=== PATIENT | male | born 1955 | race Two or more races ===

== ENCOUNTER 2023-11-02 11:15 | Inpatient (IN) | payer OTHER ==
[~2023-11-02] VITALS: Ht 177.8 cm; Wt 108.9 kg
[2023-11-02] MEDS ORDERED: SIMVASTATIN5 MG PO (13:41)
[2023-11-02] MEDS ORDERED: COZAAR100 MG PO (13:41)
[2023-11-09] MEDS ORDERED: LOSARTAN POTASS50 MG (10:51)
[2023-11-09] MEDS ORDERED: SIMVASTATIN20 MG (10:51)
[2023-11-09] MEDS ORDERED: BUPIVACAINE HCL 30 ML VIAL IJ ONE (11:45)
[2023-11-09] MEDS ORDERED: LIDOCAINE HCL 1%/EPINEPHRINE 20ML VIAL IJ ONE (11:45)
[2023-11-09] MEDS ORDERED: CEFTRIAXONE SODIUM 2,000 MG VIAL IV SCH (11:45)
[2023-11-09] MEDS ORDERED: METRONIDAZOLE/SODIUM CHLORIDE 500 MG/100 ML PIGGYBACK IV SCH (11:45)
[2023-11-09] MEDS ORDERED: 0.9 % SODIUM CHLORIDE 1,000 ML IV SCH (13:15)
[2023-11-09] MEDS ORDERED: DEXTROSE 50 % IN WATER 0.5 G/ML VIAL IV PRN (13:15)
[2023-11-09] MEDS ORDERED: MORPHINE SULFATE 4 MG/ML CARTRIDGE IV PRN (13:15)
[2023-11-09] MEDS ORDERED: ONDANSETRON HCL 2 MG/ML VIAL IV PRN (13:15)
[2023-11-09] MEDS ORDERED: OxyCODONE HCL 5 MG TABLET (ROXICODONE) PO PRN (13:15)
[2023-11-09] MEDS ORDERED: SUGAMMADEX SODIUM 200 MG/2 ML VIAL IV ONE (13:26)
[2023-11-09] MEDS ORDERED: ACETAMINOPHEN 500 MG GEL..CAP PO SCH (14:00)
[2023-11-09] MEDS ORDERED: ENALAPRILAT DIHYDRATE 1.25 MG/ML VIAL IV PRN (14:30)
[2023-11-09 14:55] LABS: HEMATOCRIT 41.1 % (39.0-48.0); HEMOGLOBIN 14.1 g/dL (13-16.00); MEAN CELL VOLUME 88.8 fL (80.0-100.00); MEAN CORPUSCULAR HEMOGLOBIN 30.4 pg (27.00-32.0); MEAN CORPUSCULAR HGB CONC 34.3 g/dl (32.0-36.0); PLATELET COUNT 226 K/uL (150-450); RED BLOOD COUNT 4.63 M/uL (4.00-6.00)
[2023-11-09 15:21] LABS: ALBUMIN 3.5 gm/dL (3.4-5.0); CREATININE SERUM 1.8 mg/dL (0.70-1.30); GFR 37.94; MAGNESIUM 1.9 mg/dL (1.8-2.4); PHOSPHOROUS 3.1 mg/dL (2.5-4.9); POTASSIUM 4.47 mEq/L (3.5-5.1)
[2023-11-09] MEDS ORDERED: GABAPENTIN 300 MG CAPSULE PO ONE (16:33)
[2023-11-09 16:42] LABS: ABG PH 7.385 (7.35-7.45); ABG PO2 89.9 mmHg (80-100); ABG pCO2 39.2 mmHg (35-45); BASE EXCESS -1.8 mmol/l; SaO2 96.7 %; Tco2 24.2 mmol/l
[2023-11-09] MEDS ORDERED: POLYETHYLENE GLYCOL 3350 17 GM BLIST.PACK PO SCH (17:00)
[2023-11-09] MEDS ORDERED: GABAPENTIN 300 MG CAPSULE PO SCH (17:00)
[2023-11-09] MEDS ORDERED: HYOSCYAMINE SULFATE 0.125 MG TAB.SUBL SL SCH (17:00)
[2023-11-09 17:20] LABS: allen test SATISFACTORY; o2 21 %; puncture site RADIAL LEFT
[2023-11-09] MEDS ORDERED: HYOSCYAMINE SULFATE 0.125 MG TAB.SUBL ONE (17:54)
[2023-11-09] MEDS ORDERED: hydrALAZINE HCL 20 MG VIAL IV PRN (18:00)
[2023-11-09] MEDS ORDERED: FAMOTIDINE/PF 20 MG/2 ML VIAL IV PUSH SCH (21:00)
[2023-11-10 07:00] LABS: HEMOGLOBIN 13.7 g/dL (13-16.00); MEAN CELL VOLUME 87.8 fL (80.0-100.00); MEAN CORPUSCULAR HEMOGLOBIN 30.9 pg (27.00-32.0); MEAN CORPUSCULAR HGB CONC 35.2 g/dl (32.0-36.0); PLATELET COUNT 191 K/uL (150-450); RED BLOOD COUNT 4.44 M/uL (4.00-6.00); RED CELL DISTRIBUTION WIDTH 13.1 % (11.5-14.5)
[2023-11-10 07:27] LABS: CALCIUM 8.1 mg/dL (8.5-10.1); CREATININE SERUM 1.09 mg/dL (0.70-1.30); GFR 67.68; MAGNESIUM 1.9 mg/dL (1.8-2.4); POTASSIUM 4.02 mEq/L (3.5-5.1)
[2023-11-10] MEDS ORDERED: KETOROLAC TROMETHAMINE 30 MG VIAL IV NR (08:15)
[2023-11-10] MEDS ORDERED: LOSARTAN POTASSIUM 50 MG TABLET PO SCH (09:00)
[2023-11-10] MEDS ORDERED: ENOXAPARIN SODIUM 40 MG/0.4 ML SYRINGE SUBCUTANEO SCH (17:00)
[2023-11-11] MEDS ORDERED: ENOXAPARIN SODIUM 40 MG/0.4 ML SYRINGE SUBCUTANEO SCH (09:00)
[2023-11-11 09:39] LABS: HEMATOCRIT 42.1 % (39.0-48.0); HEMOGLOBIN 14.6 g/dL (13-16.00); MEAN CELL VOLUME 88.8 fL (80.0-100.00); MEAN CORPUSCULAR HEMOGLOBIN 30.7 pg (27.00-32.0); MEAN CORPUSCULAR HGB CONC 34.6 g/dl (32.0-36.0); PLATELET COUNT 229 K/uL (150-450); RED BLOOD COUNT 4.74 M/uL (4.00-6.00)
[2023-11-11 10:11] LABS: CREATININE SERUM 1.12 mg/dL (0.70-1.30); GFR 65.59; MAGNESIUM 1.9 mg/dL (1.8-2.4); POTASSIUM 4.32 mEq/L (3.5-5.1)
[2023-11-11 10:27] LABS: PHOSPHOROUS 1.8 mg/dL (2.5-4.9)
[2023-11-11] MEDS ORDERED: POTASSIUM PHOS,M-BASIC-D-BASIC 18 MM in 0.9 % SODIUM CHLORIDE 250 ML IV NR (12:30)
[2023-11-11] MEDS ORDERED: HYOSCYAMINE0.125 M1 SL (12:52)
[2023-11-11] MEDS ORDERED: PEPCID AC20 MG PO (12:52)
[2023-11-11] MEDS ORDERED: TRAM1TAB98 PO (12:52)
[2023-11-11] MEDS ORDERED: INTESTINEX680 M1 PO (12:52)
== END 2023-11-12 07:42 | disposition home or self-care (01) | DRG 330 ==
LOC: SURH 11-09 08:45 → O/R 11-09 09:41 → SURH 11-09 11:15
PROVIDERS: Internal Medicine Geriatric Medicine; ADMIT Surgery; ATTEND Surgery
PROC: 0DBP4ZZ Excision of Rectum, Percutaneous Endoscopic Approach (ICD-10-PCS; 2023-11-09)
PROC: 07BC4ZZ Excision of Pelvis Lymphatic, Percutaneous Endoscopic Approach (ICD-10-PCS; 2023-11-09)
PROC: 0DJD8ZZ Inspection of Lower Intestinal Tract, Via Natural or Artificial Opening Endoscopic (ICD-10-PCS; 2023-11-09)
PROC: 4A12X4Z Monitoring of Cardiac Electrical Activity, External Approach (ICD-10-PCS; 2023-11-09)
PROC: 0DTN4ZZ Resection of Sigmoid Colon, Percutaneous Endoscopic Approach (ICD-10-PCS; principal; 2023-11-09 08:45)
DX: C18.7 Malignant neoplasm of sigmoid colon (principal); C77.9 Secondary and unspecified malignant neoplasm of lymph node, unspecified; R59.0 Localized enlarged lymph nodes; I10 Essential (primary) hypertension; G47.30 Sleep apnea, unspecified

== ENCOUNTER 2023-11-13 12:42 | Inpatient (IN) | payer OTHER ==
[~2023-11-13] VITALS: Ht 177.8 cm; Wt 108.9 kg
[~2023-11-13 12:42] MED LIST: COZAAR100 MG PO; HYOSCYAMINE0.125 M1 SL; INTESTINEX680 M1 PO; LOSARTAN POTASS50 MG; PEPCID AC20 MG PO; SIMVASTATIN20 MG; SIMVASTATIN5 MG PO; TRAM1TAB98 PO
--- NOTE | 2023-11-13 13:48 | NUR ---
PTE ALERTA Y ORIENTADO X3. EL MISMO REFIERE QUE EL JUEVES LO SOMETIERON A LAPARASCOPIA POR DR. PRESLEY Y LO DIERON DE CAITLIN EL SABADO. DESDE EL LETICIA DE JESSICA PACIENTE PRESENTA VOMITOS Y DIARREAS. EN EL LETICIA DE HOY VOMITOS X5 Y DIARREAS X4. SE REALIZA DXT 137 MG/DL.
[2023-11-13] MEDS ORDERED: RINGERS SOLUTION,LACTATED 1,000 ML IV SCH (14:00)
[2023-11-13] MEDS ORDERED: ONDANSETRON HCL 2 MG/ML VIAL IV SCH (14:06)
[2023-11-13 16:34] LABS: HEMATOCRIT 42.3 % (39.0-48.0); HEMOGLOBIN 14.9 g/dL (13-16.00); MEAN CELL VOLUME 87.9 fL (80.0-100.00); MEAN CORPUSCULAR HGB CONC 35.3 g/dl (32.0-36.0); PLATELET COUNT 249 K/uL (150-450); RED BLOOD COUNT 4.81 M/uL (4.00-6.00); RED CELL DISTRIBUTION WIDTH 12.7 % (11.5-14.5)
[2023-11-13] MEDS ORDERED: METRONIDAZOLE/SODIUM CHLORIDE 100 ML IV SCH (17:00)
[2023-11-13 17:06] LABS: ALBUMIN 3.1 gm/dL (3.4-5.0); BILIRUBIN TOTAL 0.6 mg/dL (0.3-1.2); CALCIUM 8.8 mg/dL (8.5-10.1); CREATININE SERUM 1.04 mg/dL (0.70-1.30); GFR 71.45; GLOBULINA 3.6 G/DL (2.4-3.5); POTASSIUM 3.68 mEq/L (3.5-5.1); TOTAL PROTEIN 6.7 gm/dL (6.4-8.2)
[2023-11-13] MEDS ORDERED: CIPROFLOXACIN IN 5 % DEXTROSE 200 ML IV SCH (21:00)
[2023-11-13] MEDS ORDERED: FAMOTIDINE/PF 20 MG in 0.9 % SODIUM CHLORIDE 8 ML IV PUSH SCH (21:00)
[2023-11-14 03:43] LABS: URINE EPITHELIAL CELLS 10.3 uL (0.0-38.8); URINE RBC 11.9 uL (0.0-20.8); URINE WBC 2.6 uL (0.0-23.2)
[2023-11-14 04:17] LABS: PH,URINE 6.5; URINE APPEARANCE SL CLOUDY; URINE BILIRRUBIN NEGATIVE (NEGATIVE); URINE BLOOD NEGATIVE; URINE COLOR Y; URINE GLUCOSE NEGATIVE (NEGATIVE)
[2023-11-14 04:18] LABS: URINE CRYSTALS MODERATE /HPF; URINE LEUKOCYTE NEGATIVE; URINE MUCUS SCANT; URINE NITRATE NEGATIVE; URINE PROTEIN 100 (NEGATIVE); URINE UROBILINOGEN 0.2 E.U./dl
[2023-11-14] MEDS ORDERED: ENALAPRILAT DIHYDRATE 1.25 MG/ML VIAL IV PRN (11:00)
[2023-11-14] MEDS ORDERED: ENOXAPARIN SODIUM 40 MG/0.4 ML SYRINGE SUBCUTANEO NR (13:30)
[2023-11-14] MEDS ORDERED: AA 4.25%/CAL/LYTES/DEXT 5% 1,000 ML PERIFERAL SCH (17:00)
[2023-11-14 17:38] LABS: CALCIUM 7.9 mg/dL (8.5-10.1); CHOL HDL RATIO 2.8 (0-5.0); CREATININE SERUM 0.9 mg/dL (0.70-1.30); GFR 84.43; POTASSIUM 3.6 mEq/L (3.5-5.1)
[2023-11-15] MEDS ORDERED: ENOXAPARIN SODIUM 40 MG/0.4 ML SYRINGE SUBCUTANEO SCH (09:00)
[2023-11-15] MEDS ORDERED: LOSARTAN POTASSIUM 50 MG TABLET PO SCH (09:00)
[2023-11-15 09:20] LABS: HEMATOCRIT 34.9 % (39.0-48.0); HEMOGLOBIN 12.3 g/dL (13-16.00); MEAN CORPUSCULAR HEMOGLOBIN 30.9 pg (27.00-32.0); MEAN CORPUSCULAR HGB CONC 35.1 g/dl (32.0-36.0); PLATELET COUNT 206 K/uL (150-450); RED BLOOD COUNT 3.97 M/uL (4.00-6.00); RED CELL DISTRIBUTION WIDTH 12.6 % (11.5-14.5)
[2023-11-15 10:20] LABS: ALBUMIN 2.4 gm/dL (3.4-5.0); CALCIUM 7.8 mg/dL (8.5-10.1); CREATININE SERUM 0.99 mg/dL (0.70-1.30); GFR 75.63; MAGNESIUM 1.7 mg/dL (1.8-2.4); PHOSPHOROUS 2.3 mg/dL (2.5-4.9); POTASSIUM 3.51 mEq/L (3.5-5.1)
[2023-11-15 13:47] LABS: PH,URINE 5.5 (5.0-8.0); URINE BILIRRUBIN Small (NEGATIVE); URINE BLOOD Moderate; URINE COLOR Dark Yellow; URINE GLUCOSE Negative (NEGATIVE); URINE LEUKOCYTE Small; URINE NITRATE Negative; URINE PROTEIN Trace (NEGATIVE)
[2023-11-15 13:50] LABS: URINE EPITHELIAL CELLS 10.6 uL (0.0-38.8); URINE RBC 117.7 uL (0.0-20.8); URINE WBC 4.7 uL (0.0-23.2)
[2023-11-15 13:56] LABS: URINE APPEARANCE SL CLOUDY
[2023-11-16] MEDS ORDERED: AMINO ACIDS 4.25 %/DEXTROSE 5% 2,000 ML PERIFERAL SCH (17:00)
[2023-11-16] MEDS ORDERED: ACETAMINOPHEN 500 MG GEL..CAP PO PRN (17:30)
[2023-11-17 06:54] LABS: HEMATOCRIT 32.2 % (39.0-48.0); HEMOGLOBIN 11.6 g/dL (13-16.00); MEAN CELL VOLUME 87.3 fL (80.0-100.00); MEAN CORPUSCULAR HEMOGLOBIN 31.5 pg (27.00-32.0); MEAN CORPUSCULAR HGB CONC 36.1 g/dl (32.0-36.0); PLATELET COUNT 207 K/uL (150-450); RED BLOOD COUNT 3.69 M/uL (4.00-6.00); RED CELL DISTRIBUTION WIDTH 12.8 % (11.5-14.5)
[2023-11-17 07:08] LABS: CALCIUM 8.1 mg/dL (8.5-10.1); CREATININE SERUM 0.96 mg/dL (0.70-1.30); GFR 78.37; MAGNESIUM 1.5 mg/dL (1.8-2.4); PHOSPHOROUS 2.5 mg/dL (2.5-4.9); POTASSIUM 3.8 mEq/L (3.5-5.1)
[2023-11-17] MEDS ORDERED: INTESTINEX680 M1 PO (07:08)
[2023-11-17] MEDS ORDERED: CIPRO500 MG PO (07:08)
[2023-11-17] MEDS ORDERED: METRONIDAZOLE500 MG PO (07:08)
[2023-11-17] MEDS ORDERED: DICY20TA PO (07:09)
[2023-11-17] MEDS ORDERED: MAGNESIUM SULFATE IN WATER 50 ML IV NR (07:30)
== END 2023-11-17 13:38 | disposition home or self-care (01) | DRG 392 ==
LOC: ER 12:43 → SURG 14:57 → SEC-K 14:57 → SURG 11-14 02:17
PROVIDERS: General Practice; Internal Medicine Geriatric Medicine; ADMIT Surgery; ATTEND Surgery
PROC: BW21ZZZ Computerized Tomography (CT Scan) of Abdomen and Pelvis (ICD-10-PCS; principal; 2023-11-13)
PROC: 02HV33Z Insertion of Infusion Device into Superior Vena Cava, Percutaneous Approach (ICD-10-PCS; 2023-11-14)
DX: R11.10 Vomiting, unspecified (principal); C18.7 Malignant neoplasm of sigmoid colon; R19.7 Diarrhea, unspecified; G47.30 Sleep apnea, unspecified

== ENCOUNTER 2023-12-07 06:29 | Day surgery (SDC) | payer OTHER ==
[~2023-12-07 06:29] MED LIST changes: +CIPRO500 MG PO; +DICY20TA PO; +METRONIDAZOLE500 MG PO
[2023-12-07] MEDS ORDERED: CEFAZOLIN SODIUM 1,000 MG VIAL ONE (07:49)
[2023-12-07] MEDS ORDERED: HEPARIN SODIUM,PORCINE 500 UNITS/5 ML VIAL IV ONE (08:08)
[2023-12-07] MEDS ORDERED: LIDOCAINE HCL 1%/EPINEPHRINE 20ML VIAL IJ ONE ×2 (08:26→08:30)
[2023-12-07] MEDS ORDERED: BUPIVACAINE HCL/MPF 0.5% 30ML VIAL ONE (08:26)
[2023-12-07] MEDS ORDERED: BUPIVACAINE HCL/PF 0.25% 30ML VIAL InF ONE (08:30)
[2023-12-07] MEDS ORDERED: TRAM1TAB98 PO (08:48)
== END 2023-12-07 11:00 | disposition home or self-care (01) ==
LOC: CIR.AMB 06:29
PROVIDERS: ATTEND Surgery
DX: C18.7 Malignant neoplasm of sigmoid colon (principal); I10 Essential (primary) hypertension
CPT/HCPCS: 36561; C1751

== ENCOUNTER 2024-08-01 05:35 | Day surgery (SDC) | payer OTHER ==
[2024-08-01] MEDS ORDERED: CEFAZOLIN SODIUM 1,000 MG VIAL IV ONE (07:15)
[2024-08-01] MEDS ORDERED: BUPIVACAINE HCL 30 ML VIAL IJ ONE (07:45)
[2024-08-01] MEDS ORDERED: LIDOCAINE HCL 1%/EPINEPHRINE 20ML VIAL IJ ONE (07:45)
[2024-08-01] MEDS ORDERED: TRAM1TAB98 PO (08:17)
== END 2024-08-01 10:45 | disposition home or self-care (01) ==
LOC: CIR.AMB 05:35
PROVIDERS: ATTEND Surgery
DX: T82.594A Other mechanical complication of infusion catheter, initial encounter (principal); C18.7 Malignant neoplasm of sigmoid colon; I10 Essential (primary) hypertension